=== PATIENT | female | born 1940 | race Caucasian/White ===

== ENCOUNTER 2022-03-09 10:31 | Inpatient (IN) ==
--- NOTE | 2022-02-02 14:14 | PAT Medication Instructions ---
Medication Instructions Date of Service February 02, 2022 Home Medications amlodipine 5 mg tablet 5 mg PO QAM aspirin 81 mg tablet,delayed release 81 mg PO QAM atorvastatin 10 mg tablet 10 mg PO HS escitalopram oxalate 10 mg tablet 10 mg PO HS lisinopril 30 mg tablet 30 mg PO QAM docusate sodium [Stool Softener] 1 ea PO DAILY PRN Constipation amoxicillin 500 mg capsule 500 mg PO UD cholecalciferol (vitamin D3) 125 mcg (5,000 unit) tablet (Vitamin D3) 125 mcg PO QAM turmeric 1,500 mg PO QAM Continue as directed amoxicillin 500 mg capsule 500 mg PO UD (prior to dental procedures) ASK your prescriber and surgeon aspirin 81 mg tablet,delayed release 81 mg PO QAM STOP taking 2 weeks before surgery (or as soon as possible if surgery is within 2 weeks) turmeric 1,500 mg PO QAM DO NOT take the morning of surgery lisinopril 30 mg tablet 30 mg PO QAM docusate sodium [Stool Softener] 1 ea PO DAILY PRN Constipation cholecalciferol (vitamin D3) 125 mcg (5,000 unit) tablet (Vitamin D3) 125 mcg PO QAM Take morning of surgery With a small sip of water, OTHERWISE NOTHING TO EAT OR DRINK AFTER MIDNIGHT: amlodipine 5 mg tablet 5 mg PO QAM Take evening before surgery atorvastatin 10 mg tablet 10 mg PO HS escitalopram oxalate 10 mg tablet 10 mg PO HS docusate sodium [Stool Softener] 1 ea PO DAILY PRN Constipation (if needed) Other Notes If you have any questions please call us at [phone] or [phone] or [phone] or [phone]
--- NOTE | 2022-02-10 14:43 | Anesthesiology Consultation ---
Date of Service February 10, 2022 Assessment & Plan (1) Encounter for pre-operative examination: - Patient acceptable risk for surgery pending surgeon-ordered PCP preop evaluation (Dr. Jennifer Akhtar, scheduled approximately 02/24). - COVID screening: Per assessment on 02/10: No known COVID-19 positive contacts or current COVID-19 related symptoms. Travel screen negative. Patient vaccinated. At surgeon discretion if preop Covid testing being done. - Cardiology office visit (02/09/22): "The patient is stable from cardiovascular standpoint. She demonstrates excellent control of her blood pressure and LDL ch olesterol. Her nzsz-uo-[id number] aortic stenosis remains stable. She is an acceptable cardiac risk for shoulder replacement surgery without further testing. She demonstrates excellent functional status without cardiac symptoms.. Continue current medications.. Continue home blood pressure monitoring.. Echocardiogram prior to next visit.. Follow-up in 6 months." - Outpatient joint assessment: Pt currently scheduled for inpatient pathway. If surgeon requests review for outpatient joint pathway, patient is not recommended for outpatient joint program from anesthesia standpoint. Chart Review Chart Review: Patient seen in Pre Admission Testing Teaching & Discussion Pre-Anesthesia Teaching/Discussion Notes: Instructed NPO after midnight before surgery,except medications with 15 cc of water. Medication instructions provided according to the PAT guidelines. History Surgery Operation Date: 03/09/22 10:40 Proposed Procedures p Right Reverse Total Shoulder Arthroplasty - Ronaldo Lazaro M.D. Height/Weight Height: 5 ft Weight: 69 kg Allergies Allergy/AdvReac Type Severity Reaction Status Date / Time No Known Allergies Allergy Verified 02/09/22 12:59 Medications Home Medications Medication Instructions Recorded Confirmed Last Taken amlodipine 5 mg tablet 5 mg PO QAM 01/05/20 02/09/22 Unknown aspirin 81 mg tablet,delayed 81 mg PO QAM 01/05/20 02/09/22 Unknown release atorvastatin 10 mg tablet 10 mg PO HS 01/05/20 02/09/22 Unknown escitalopram oxalate 10 mg tablet 10 mg PO HS 01/05/20 02/09/22 Unknown lisinopril 30 mg tablet 30 mg PO QAM 01/05/20 02/09/22 Unknown docusate sodium [Stool Softener] 1 ea PO DAILY PRN Constipation 01/07/20 02/09/22 Unknown amoxicillin 500 mg capsule 500 mg PO UD 02/02/22 02/09/22 Unknown cholecalciferol (vitamin D3) 125 125 mcg PO QAM 02/02/22 02/09/22 Unknown mcg (5,000 unit) tablet (Vitamin D3) Past Medical History Medical History Aortic stenosis Mild to moderate aortic stenosis (SUJIT 1.0cm2) per 07/19/21 echo/cardio note History of anxiety Hx of osteoarthritis Hyperlipidemia Hypertension Kidney stone Hx, passed without intervention Exercise / Class Metabolic Activity III < 4 Walking/Shop/Light housework (one FS (no CP, + SOB)) Past Surgical History Surgical History History of esophagogastroduodenoscopy (EGD) Hx of appendectomy + hysterectomy Hx of arthroscopic knee surgery Left Hx of breast reduction, elective Hx of cataract extraction R/L Hx of colonoscopy Hx of total hysterectomy with removal of both tubes and ovaries Past Anesthesia History No Hx of Anesthesia Complications and No Family Hx of Anesthesia Complications History of PONV No Hx of PONV and No Hx of Motion Sickness Social History Smoking Status: Never smoker Do You Dip or Chew Tobacco: No Hx Alcohol Use: No Hx Substance Use: No substance use type: does not use Review of Systems Patient denies chest pain, shortness of breath, fever, chills, cough, wheezing, palpitations. Physical Exam Vital Signs VITALS BP 113/70 P 67 TEMP 98.5 SP02 97%RA RESP 16 PHYSICAL Full cervical extension range of motion. Full TMJ range of motion. TMD 3 finger breaths Mallampati Score 2 Dentition: upper partial Lungs: clear throughout to auscultation Cardiac: regular rate and rhythm, II-III/ systolic murmur + carotid radiation Spine: normal Extremities: no edema Lab Results Anesthesia Preop Results Results Anesthesia Widget: WBC 5.40 K/ul (4.8-10.8) 02/10/22 Hgb 11.7 g/dl (12.0-16.0) L 02/10/22 Hct 35.6 % (34.1-44.9) 02/10/22 Plt 281 K/uL (130-400) 02/10/22 Na 140 mmol/L (136-145) 02/07/22 K 4.2 mmol/L (3.5-5.1) 02/07/22 Cl 106 mmol/L (98-107) 02/07/22 CO2 29 mmol/L (21-32) 02/07/22 BUN 12 mg/dl (6-23) 02/07/22 Creat 0.84 mg/dl (0.6-1.2) 02/07/22 Glucose Level 92 mg/dl (70-99(Fasting)) 02/07/22 PT 10.0 Seconds (9.0-12.0) 02/10/22 PTT 26.4 Seconds (21.0-31.0) 02/10/22 INR 0.9 (0.9-1.1) 02/10/22 HA1c 5.8 % (4.5-5.6) H 02/10/22 Urine Color Yellow 02/10/22 Urine Appearance Clear (Clear) 02/10/22 Urine pH 7.0 (4.5-7.5) 02/10/22 Urine Specific Dwarf 1.015 (1.000-1.030) 02/10/22 Urine Protein Negative (Negative) 02/10/22 Urine Glucose (UA) Negative (Negative) 02/10/22 Urine Ketones Negative (Negative) 02/10/22 Urine Blood Negative (Negative) 02/10/22 Urine Nitrite Negative (Negative) 02/10/22 Urine Bilirubin Negative (Negative) 02/10/22 Urine Urobilinogen Negative (Negative) 02/10/22 Urine Leukocyte Esterase 2+ (Negative) H 02/10/22 Urine WBC (Auto) 1-5 /hpf (0-5) 02/10/22 Urine RBC (Auto) 0-4 /hpf (0-4) 02/10/22 Urine Hyaline Casts (Auto) 0 /lpf (0-5) 02/10/22 Urine Epithelial Cells (Auto) 20-30 /lpf (0-5) H 02/10/22 Urine Bacteria (Auto) Negative (Negative) 02/10/22 Blood Type B Negative 02/10/22 Antibody Screen NEGATIVE 02/10/22 Testing Electrocardiogram Date: 02/10/22 Findings: + NSR @ (68) Chest X-Ray Date: 02/10/22 Findings: + NAD Echocardiogram Date: 07/19/21 EF 55-60%. Mild valvular aortic stenosis (SUJIT 1.0 cm, max PG 21.6 mmHg). 1 diastolic dysfunction. Mild RVD/RAD. Mild concentric LVH. No regional wall motion abnormality. Compared with prior study 05/24/2020, no significant change per report. Stress Test Date: 10/13/16 Type: DSE DSE is normal without resting LV wall motion abnormalities or inducible ischemia. LVEF 55-59%. Moderately calcified aortic valve. Mild aortic stenosis. Grade 1 diastolic dysfunction. Mild TR. COVID-19 Risk Screen Screening Information COVID-19 Screen Date: 02/10/22 Exposure 21 Days Family/Household +COVID Last 21 Days: No Exposure 10 Days Any COVID Exposure Last 10 Days: No Symptoms Last 10 Days Experienced COVID Sx Last 10 Days: No + COVID 0-90 Days COVID + in Last 0-90 Days: No
--- NOTE | 2022-03-08 16:08 | History & Physical Report ---
Date of Service March 08, 2022 Assessment & Plan (1) Primary osteoarthritis, right shoulder: Plan: She has very severe right shoulder glenohumeral joint arthritis. Unfortunately, her MRI shows that she has very diffuse high-grade partial-thickness tearing of the rotator cuff with atrophy of the rotator cuff muscle bellies. I would therefore highly recommend a reverse total shoulder arthroplasty as her only viable surgical treatment option. We did discuss further conservative management with continued injections, but these have not been terribly effective for her recently. She and her would like to proceed with the right reverse total shoulder arthroplasty. Risks, benefits, and alternatives of surgery were explained in detail. The surgical procedure, as well as postoperative recovery and rehabilitation, was also explained in detail. Risks include bleeding; infection; damage to surrounding structures such as nerves, blood vessels, and tendons that run in the area; persistent pain or stiffness; hardware failure; dislocation; brachial plexus palsy; blood clots; or need for further surgery. The patient understands all of this and wishes to proceed with surgery. Informed consent was obtained. History of Present Illness Chief Complaint: Right shoulder pain Primary Care Provider: Josr Ovalles Ms. Patterson is a 81-year-old [id number] female who returns for follow-up of her severe chronic right shoulder pain. She has had pain in this right shoulder for least the past 4 years with gradual progressive worsening. She has received at least 12 steroid injections into her right shoulder for arthritis, usually every 3 months. She has been having decreasing efficacy with these injections over time. She has severe constant pain in the shoulder that frequently wakes her up at night. She has lost a lot of motion, and has difficulty with abduction. The pain and limited motion is causing severe limitations in her activities of daily living. Of note, she has a history of aortic stenosis followed by cardiology. No surgery was recommended for this yet. She is on aspirin 81 mg daily. She is scheduled to see her data engineer for regular follow-up on February 09. Allergies Allergy/AdvReac Type Severity Reaction Status Date / Time No Known Allergies Allergy Verified 02/09/22 12:59 Home Medications Medication Instructions Recorded Confirmed Type amlodipine 5 mg tablet 5 mg PO QAM 01/05/20 02/09/22 History aspirin 81 mg tablet,delayed 81 mg PO QAM 01/05/20 02/09/22 History release atorvastatin 10 mg tablet 10 mg PO HS 01/05/20 02/09/22 History escitalopram oxalate 10 mg tablet 10 mg PO HS 01/05/20 02/09/22 History lisinopril 30 mg tablet 30 mg PO QAM 01/05/20 02/09/22 History docusate sodium [Stool Softener] 1 ea PO DAILY PRN Constipation 01/07/20 02/09/22 History amoxicillin 500 mg capsule 500 mg PO UD 02/02/22 02/09/22 History cholecalciferol (vitamin D3) 125 125 mcg PO QAM 02/02/22 02/09/22 History mcg (5,000 unit) tablet (Vitamin D3) Past Med/Surg History Medical History Aortic stenosis Mild to moderate aortic stenosis (SUJIT 1.0cm2) per 07/19/21 echo/cardio note History of anxiety Hx of osteoarthritis Hyperlipidemia Hypertension Kidney stone Hx, passed without intervention Surgical History History of esophagogastroduodenoscopy (EGD) Hx of appendectomy + hysterectomy Hx of arthroscopic knee surgery Left Hx of breast reduction, elective Hx of cataract extraction R/L Hx of colonoscopy Hx of total hysterectomy with removal of both tubes and ovaries Social History Smoking Status: Never smoker Second Hand Exposure: No; Hx Alcohol Use: No Hx Substance Use: No Preferred Language: German Communication Ability: Effective Day Care Worker Required: No Beliefs That Will Affect Care: None Current Living Situation: Spouse Feels Safe at Home: Yes Assistive Devices: Denture - Upper Physical Exam Physical Exam: Examination of the right shoulder shows fairly severe limitation in shoulder range of motion due to pain, with palpable crepitus during motion. She can only actively abduct up to about 60 degrees, externally rotate to about 20 degrees, and internally rotate to the PSIS level. Rotator cuff strength is globally weak. Results & Data ([facility]) Diagnostic Findings Previous x-rays of the right shoulder from January 11 were reviewed. They show severe glenohumeral joint arthritis with complete loss of the joint space and significant remodeling of both the humeral head and glenoid with significant posterior glenoid wear and posterior subluxation. MRI of the right shoulder from January 25 was reviewed. Multiple sequences are severely limited by motion artifact. However, it does look like she has severe diffuse tendinopathy and high-grade partial-thickness tearing of multiple rotator cuff tendons. There is significant atrophy of multiple rotator cuff muscle bellies.
[~2022-03-09 10:31] MED LIST: ACETAMINOPHEN 500 MG TAB PO SCH; BUPIVACAINE 0.5 % 5 MG/1 ML PF 10ML VIAL ONE; CeleBREX 200 MG CAP PO SCH; FAMOTIDINE 20 MG TAB PO SCH; GABAPENTIN 300 MG CAP PO SCH; LR 15ML/HR IV SCH; METOCLOPRAMIDE HCL 10 MG TABLET PO SCH; TRANEXAMIC ACID 1,000 MG **IV Pre-op IV SCH; ceFAZolin 2000MG 2,000 MG/15 ML SYR IV SCH; dexAMETHasone 4 MG TAB PO SCH
[2022-03-09] MEDS ORDERED: fentaNYL citrate 100 MCG/2 ML VIAL IV PRN (11:36)
[2022-03-09] MEDS ORDERED: ONDANSETRON INJ 2 MG/ML 2 ML VIAL IV PRN ×2 (11:36→17:14)
[2022-03-09] MEDS ORDERED: ATROPINE SULFATE 0.1 MG/ML 10ML SYR IV PRN (11:36)
[2022-03-09] MEDS ORDERED: ePHEDrine sulfate 50 MG/ML AMP IV PRN (11:36)
[2022-03-09] MEDS ORDERED: MIDAZOLAM HCL 1 MG/ML 2ML VIAL ONE (12:39)
[2022-03-09] MEDS ORDERED: fentaNYL citrate 100 MCG/2 ML VIAL ONE (12:39)
--- NOTE | 2022-03-09 13:16 | History & Physical Bridge Note ---
Date of Service March 09, 2022 History & Physical Bridge Note I have examined the patient, reviewed the History & Physical and in the interval since the performance of the History & Physical I have noted the following changes of clinical significance: no changes noted
[2022-03-09] MEDS ORDERED: DEXAMETHASONE SOD INJ 4 MG/ML VIAL ONE (14:23)
[2022-03-09] MEDS ORDERED: LIDOCAINE 2% 2 ML VIAL/AMP(20MG/ML) INFIL ONE (14:23)
[2022-03-09] MEDS ORDERED: PROPOFOL IV EMULSION 10 MG/ML 20 ML VIAL IV ONE (14:23)
[2022-03-09] MEDS ORDERED: ONDANSETRON INJ 2 MG/ML 2 ML VIAL ONE (14:23)
[2022-03-09] MEDS ORDERED: ePHEDrine sulfate 50 MG/ML AMP ONE (14:23)
[2022-03-09] MEDS ORDERED: PHENYLEPHRINE HCL 10 MG/ML VIAL ONE (14:23)
--- NOTE | 2022-03-09 15:35 | Operative Report ---
Post Operative Report Pre & Post Diagnosis Operation Date: 03/09/22 13:15 Pre-Op Diagnosis: Right shoulder primary glenohumeral joint arthritis with diffuse partial- thickness rotator cuff tearing Post-Op Diagnosis: Right shoulder primary glenohumeral joint arthritis with diffuse partial- thickness rotator cuff tearing I identified the patient and participated in the time-out.: Yes Procedure Operation Date: 03/09/22 13:15 Actual Procedures Right reverse total shoulder arthroplasty (20655) Open biceps tenodesis (54560) - Ronaldo Lazaro M.D. Surgeon Ronaldo Lazaro Shank Scourer Mahin Vivas PA-C Estimated Blood Loss 75 Findings Consistent with Post-Op Diagnosis Specimens None Drains None Anesthesia Type General Regional Complications none Disposition Disposition: Recovery Room Indications Ms. Patterson is an 82-year-old female with chronic right shoulder pain and weakness. History, clinical exam, and imaging were consistent with the above diagnosis. Risks, benefits, and alternatives of surgery were explained in detail. The patient understood all this and wished to proceed. Description of Procedure Components Implanted: Tornier Reverse Total Shoulder implants Perform glenoid baseplate: 25mm, 15 degree full wedge with 6.5mm central screw and 5.0mm peripheral screws Glenosphere: 39mm, +3mm, eccentric offset Ascend Flex humeral stem: 2B Standard length (70mm) Humeral tray: 3.5 mm offset, +6mm thickness Polyethylene insert: 39mm, +6mm thickness Patient was identified in the preoperative holding area. Operative extremity was marked. Regional blockade was given by the Anesthesia Staff. Patient was then brought back to the operating room, and general anesthesia was induced without complication. Appropriate weight-based dose of Ancef was infused intravenously for antibiotic prophylaxis. The patient was then placed in the beachchair position. Right arm was then prepped and draped in a standard sterile fashion using Chlorhexidine prep. A standard deltopectoral incision was made through the skin and subcutaneous tissue. The cephalic vein was identified and retracted medially. Small branches to the deltoid were coagulated as necessary. The clavipectoral fascia was then incised and the subdeltoid space was opened. The rotator cuff was found to be deficient, and I therefore decided to perform a reverse total shoulder arthroplasty as planned preoperatively. The biceps tendon was identified within the bicipital groove and tenodesed at the superior border of the pectoralis tendon with #2 FiberWire suture. The biceps tendon was then divided proximal to the tenodesis site and the rotator interval was opened. The proximal portion of the biceps tendon was excised. The remaining subscapularis tendon was elevated subperiosteally off of the lesser tuberosity. The glenohumeral joint was then dislocated, and large osteophytes were debrided with a ronguer. The intramedullary canal of the humerus was then opened with a canal finder. The humeral head cut was then made in the appropriate inclination and version using the cutting guide. The humeral canal was then sequentially broached to the appropriate size. A protective cap was then placed on top of the humeral trial. I then turned my attention to the glenoid. The proximal stump of the biceps tendon was excised, along with the labrum circumferentially around the glenoid. The Blueprint drill guide was then positioned on the glenoid, and the guidepin was then inserted. The 15 degree angled reamer was then inserted over the gu idepin and an reamed to an appropriate depth. The central screw hole was drilled, and appropriate length 6.5mm central screw was selected. The baseplate was then implanted into place according to our preoperative Blueprint plan by tightening down the central screw. A peripheral 5mm nonlocking screw was placed posteriorly first for additional compression of the baseplate, and then additional locking 5 mm peripheral screws were placed to complete fixation of the baseplate. Glenosphere was then impacted and secured. A trial humeral tray and insert were placed on the trial humeral stem, and a trial reduction was carried out. Once I achieved acceptable joint stability and range of motion with the trial implants, the final humeral implants were assembled on the back table and then impacted into position. I then took the shoulder through full range of motion to ensure good stability and acceptable motion. Wound was then copiously irrigated with sterile saline. Deep fascia was closed with 0 V-lock suture. Subcutaneous tissue was closed with 2-0 V-lock, and skin was closed with 3-0 V-lock. Skin was then sealed with Dermabond. Sterile dressings were then applied with a waterproof silver-impregnated dressing, and the arm was placed into a sling. The patient was awakened from anesthesia and taken to the Post Anesthesia Care Unit in stable condition. There were no immediate complications from the procedure. I was present and scrubbed for the entire procedure, with the exception of final skin closure and dressing application. Due to the complex nature of the procedure, the entire surgery was performed with the operational assistance of Mahin Vivas PA-C. The clinical assistant professor, under direct supervision, was involved in the performance of all aspects of the surgical procedure including hemostasis, tissue incision and retraction, instrument management, patient positioning, and wound closure. I attest to the content of the Intraoperative Record and any orders documented therein. Any exceptions are noted below.
--- NOTE | 2022-03-09 16:15 | XRay Report ---
RIGHT SHOULDER 2 VIEWS CLINICAL HISTORY: Postoperative examination. FINDINGS: 2 portable views of the right shoulder are obtained. The skeletal structures are osteopenic . A right shoulder arthroplasty is in near anatomic alignment. No acute fracture is seen. Simultaneou s gas and soft tissue swelling overlying the right shoulder are expected postoperative changes. Mild productive degenerative change is noted at the acromioclavicular joint. The right lung parenchyma is clear as imaged. IMPRESSION: Expected postoperative findings status post right shoulder arthroplasty. No acute fractur e is seen. Electronically signed by: Tate Brewster M.D. 03/09/2022 4:13 PM
[2022-03-09] MEDS ORDERED: MAGNESIUM HYDROXIDE SUSP 30 ML UDC PO PRN (17:14)
[2022-03-09] MEDS ORDERED: bisacodyL 10 MG SUPP PR PRN (17:14)
[2022-03-09] MEDS ORDERED: oxyCODONE HCL IR 5 MG TAB (IMMEDIATE RELEASE) PO PRN (17:14)
[2022-03-09] MEDS ORDERED: SODIUM CHLORIDE 0.9% 1000ML 1,000 ML IV SCH (17:14)
[2022-03-09] MEDS ORDERED: NALOXONE HCL 0.4 MG/1 ML VIAL/CARP IV PRN (17:14)
[2022-03-09] MEDS ORDERED: METOCLOPRAMIDE HCL INJ 5 MG/ML 2 ML VIAL IV PRN (17:14)
[2022-03-09] MEDS: ACETAMINOPHEN 500 MG TAB PO SCH ×2 (17:57→23:27)
--- NOTE | 2022-03-09 18:36 | Anesthesiology Progress Note ---
Date of Service March 09, 2022 Anesthesia Post Procedure Vital Signs Vital Signs: Temp Pulse Pulse Resp BP Pulse Ox O2 Del Method 03/09/22 16:50 96 H 17 135/68 94 Nasal Cannula 03/09/22 16:40 97 H 20 133/65 94 Nasal Cannula 03/09/22 16:30 96 H 17 123/58 L 94 Nasal Cannula 03/09/22 16:20 36.6 C 97 H 17 126/69 95 Nasal Cannula 03/09/22 16:10 94 H 18 126/76 96 Oxymask 03/09/22 16:00 93 H 16 115/66 96 Oxymask 03/09/22 15:50 92 H 19 122/69 98 Oxymask 03/09/22 15:43 36.0 C L 101 H 12 149/77 H 97 Oxymask 03/09/22 10:53 36.7 C 89 20 152/90 H 95 Room Air O2 Flow Rate 03/09/22 16:50 2 03/09/22 16:40 2 03/09/22 16:30 2 03/09/22 16:20 2 03/09/22 16:10 4 03/09/22 16:00 4 03/09/22 15:50 6 03/09/22 15:43 8 03/09/22 10:53 Pain Intensity Right Shoulder: Pain Intensity: 3 Transfer of Care Handoff Completed per policy Notes Mental Status: alert / awake / arousable Patient Amnestic to Procedure: Yes Nausea / Vomiting: adequately controlled Pain: adequately controlled Airway Patency, RR, SpO2: stable & adequate BP & HR: stable & adequate Hydration State: stable & adequate Anesthetic Complications: no major complications apparent
[2022-03-09] MEDS ORDERED: SENNA 8.6 MG TAB PO SCH (21:00)
[2022-03-09] MEDS ORDERED: ESCITALOPRAM OXALATE 10 MG TAB PO SCH (21:00)
[2022-03-09] MEDS ORDERED: ATORVASTATIN 10 MG TAB PO SCH (21:00)
[2022-03-09] MEDS: DOCUSATE SODIUM 100 MG CAP PO SCH (21:04)
[2022-03-09] MEDS: IBUPROFEN 600 MG TAB PO SCH (21:04)
[2022-03-09] MEDS: ceFAZolin 2000MG 2,000 MG/15 ML SYR IV SCH (22:27)
[2022-03-10] MEDS: IBUPROFEN 600 MG TAB PO SCH ×2 (02:07→09:07)
[2022-03-10] MEDS: ACETAMINOPHEN 500 MG TAB PO SCH (05:52)
[2022-03-10] MEDS: ceFAZolin 2000MG 2,000 MG/15 ML SYR IV SCH (05:52)
[2022-03-10 08:00] LABS: Basophils # (auto) 0.01 K/uL (0-0.2); Basophils % (auto) 0.1 %; Hematocrit (blood only) 30.5 % (34.1-44.9); Hemoglobin 10.3 g/dl (12.0-16.0); Immature Granulocytes # (auto) 0.05 K/uL (0.00-0.02); Immature Granulocytes % (auto) 0.4 %; Lymphocytes # (auto) 0.58 K/uL (1.2-3.4); Mean Corpuscular Hemoglobin 29.5 pg (25.0-34.0); Mean Corpuscular Hgb Conc 33.8 g/dL (32.0-36.0); Mean Corpuscular Volume 87.4 fL (80.0-100.0); Mean Platelet Volume 9.6 fL (9.4-12.3); Monocytes # (auto) 0.98 K/uL (0.24-0.82); Monocytes % (auto) 8.5 %; Neutrophils # (auto) 9.94 K/uL (1.4-6.5); Platelet Count 231 K/uL (130-400); RDW Coefficient of Variation 12.3 % (11.5-14.5); RDW Standard Deviation 39.4 fL (36.4-46.3); Red Blood Count 3.49 M/uL (3.93-5.22); White Blood Count 11.56 K/ul (4.8-10.8)
--- NOTE | 2022-03-10 08:09 | Orthopedic Progress Note ---
Date of Service March 10, 2022 Assessment & Plan (1) Primary osteoarthritis, right shoulder: Plan: 82 yo female stable POD #1 s/p right reverse TSA 1. Med management 2. DVT prophylaxis- ASA, SCDs 3. PT/OT 4. D/C planning- home w/ OPPT Admission and Anticipated Discharge Date Admission Date: March 09, 2022 Subjective Pt resting in bed, denies complaints, no pain Physical Exam Physical Exam: Silverlon dressing in place, fingers mobile, NVI Results & Data ([facility]) Vital Signs (Past 12 Hours) Vital Signs Temp Pulse Resp BP Pulse Ox O2 Del Method O2 Flow Rate 03/10/22 07:41 36.6 C 65 16 112/70 93 Room Air 03/10/22 06:00 36.4 C L 68 16 122/61 94 Room Air 03/10/22 00:00 36.9 C 73 16 111/70 93 Nasal Cannula 2 Laboratory Results 03/10/22 03/10/22 03/09/22 Range/Units 07:11 07:11 10:40 WBC 11.56 H (4.8-10.8) K/ul RBC 3.49 L (3.93-5.22) M/uL Hgb 10.3 L (12.0-16.0) g/dl Hct 30.5 L (34.1-44.9) % MCV 87.4 (80.0-100.0) fL MCH 29.5 (25.0-34.0) pg MCHC 33.8 (32.0-36.0) g/dL RDW Std Deviation 39.4 (36.4-46.3) fL RDW Coeff of Belle 12.3 (11.5-14.5) % Plt Count 231 (130-400) K/uL MPV 9.6 (9.4-12.3) fL Immature Gran % (Auto) 0.4 % Neut % (Auto) 86.0 % Lymph % (Auto) 5.0 % [place] % (Auto) 8.5 % Eos % (Auto) 0.0 % Baso % (Auto) 0.1 % Neut # (Auto) 9.94 H (1.4-6.5) K/uL Lymph # (Auto) 0.58 L (1.2-3.4) K/uL [place] # (Auto) 0.98 H (0.24-0.82) K/uL Eos # (Auto) 0.00 (0-0.50) K/uL Baso # (Auto) 0.01 (0-0.2) K/uL Immature Gran # (Auto) 0.05 H (0.00-0.02) K/uL Sodium Pending Potassium Pending Chloride Pending Carbon Dioxide Pending Anion Gap Pending BUN Pending Creatinine Pending Est Cr Clr Drug Dosing Pending Est GFR ( Amer) Pending Est GFR (Non-Af Amer) Pending BUN/Creatinine Ratio Pending Glucose Pending Calcium Pending SARS-CoV-2, RNA, NAAT NEGATIVE (NEGATIVE)
[2022-03-10 08:32] LABS: BUN Creatinine Ratio 22.4 (10-20); Calcium 8.2 mg/dl (8.5-10.1); Creatinine Clr Calc Pharmacy 36.1 ml/min; Est GFR (African American) 56.8 ml/min; Potassium 4.4 mmol/L (3.5-5.1)
[2022-03-10] MEDS ORDERED: lisinopril 10 MG TAB PO SCH (09:00)
[2022-03-10] MEDS ORDERED: ASPIRIN 325 MG ECTAB PO SCH (09:00)
[2022-03-10] MEDS ORDERED: CHOLECALCIFEROL 5,000 UNITS 125 MCG TAB PO SCH (09:00)
[2022-03-10] MEDS ORDERED: amLODIPine BESYLATE 5 MG TAB PO SCH (09:00)
[2022-03-10] MEDS ORDERED: MULTIVITAMIN TAB PO SCH (09:00)
[2022-03-10] MEDS: DOCUSATE SODIUM 100 MG CAP PO SCH (09:07)
--- NOTE | 2022-03-10 14:53 | Discharge Summary ---
Date of Service March 10, 2022 Admission HPI Per Admitting Provider Ms. Patterson is a 81-year-old [id number] female who returns for follow-up of her severe chronic right shoulder pain. She has had pain in this right shoulder for least the past 4 years with gradual progressive worsening. She has received at least 12 steroid injections into her right shoulder for arthritis, usually every 3 months. She has been having decreasing efficacy with these injections over time. She has severe constant pain in the shoulder that frequently wakes her up at night. She has lost a lot of motion, and has difficulty with abduction. The pain and limited motion is causing severe limitations in her activities of daily living. Of note, she has a history of aortic stenosis followed by cardiology. No surgery was recommended for this yet. She is on aspirin 81 mg daily. She is scheduled to see her price changer for regular follow-up on February 09. Principal Diagnosis Right shoulder arthritis with diffuse rotator cuff tearing Discharge Data Allergies Allergy/AdvReac Type Severity Reaction Status Date / Time No Known Allergies Allergy Verified 03/09/22 10:48 Procedures Performed Operation Date: 03/09/22 13:15 Actual Procedures p Right Reverse Total Shoulder Arthroplasty - Ronaldo Lazaro M.D. Ordered Studies 03/09/22 05:00 US - OR guided needle placemen Routine Hospital Course (1) Primary osteoarthritis, right shoulder: Patient underwent a right reverse total shoulder arthroplasty on the date of admission. Patient tolerated the procedure well and was transferred up to the general orthopedic surgery floor in stable condition. Perioperative antibiotic coverage was initiated, and continued for 24 hours postoperatively. DVT prophylaxis was initiated consisting of SCDs and aspirin 325 mg daily. Perioperative pain control regimen was transitioned to strictly oral pain medications by postoperative day 1. On postoperative day 1 the patient was doing very well. Pain was well controlled, and patient was mobilizing well with therapy. Patient was determined be safe and ready for discharge to home. Total Time Total Time Spent Total Time Spent (In Minutes): 15 Discharge Plan Discharge Items Patient Disposition: Home - Self-Care Reason For Visit: Right Shoulder Osteoarthritis w Rotator Cuff Tear Discharge Diagnosis: Right shoulder primary glenohumeral joint arthritis with diffuse partial thickness rotator cuff tearing Activity: Per Instructions section Non-emergency contact: Surgeon Call non-emergency contact if: your pain is not controlled, your temperature is above 101.5, your wound has increased redness and your wound has increased drainage Follow-up/Referrals: Jennifer Akhtar MD [Primary Care Provider] - Ronaldo Lazaro M.D. [Physician] - Diet: Regular Addtl Attending Provider Instructions: Things to Watch Out For -Go to the Emergency Room if you have sudden onset of nausea, vomiting, chest pain, shortness of breath, or uncontrollable pain. -Call the clinic or go to the Emergency Room if you have a sudden increase in the amount of wound drainage or the drainage becomes thick, yellow or green, or foul-smelling. -For routine questions, call the clinic at [phone] during regular business hours (8am-5pm). For urgent issues after regular business hours, you may call the clinic to be connected to the on-call physician. Dressings -A special waterproof, silver-impregnated dressing was placed on your shoulder. Keep this dressing in place for 1 week after surgery. You may shower with the waterproof dressing in place, but do not soak the dressing in the bathtub or pool. -One week after surgery, you may remove the waterproof dressing. You may continue to shower, and let water run BRIEFLY over the incision, but do not soak the incision in the bathtub or pool for 2 weeks. You may also gently clean the incision with mild soap and water; pat the incision dry after cleaning-do not rub the incision. Apply a new dressing daily thereafter. Shoulder Exercises -Keep your operative shoulder in the sling for comfort, except as detailed below. -You should come out of the sling 4-5 times a day for passive pendulum exercises: lean over and swing your arm in a circular pattern. -You should also do active-assisted forward flexion exercises: use your opposite hand to lift your operative arm forward to 90 degrees. -Do not flex your elbow (curl motion) or supinate your forearm (rotating palm up) against resistance. -Do not use your arm to push yourself up out of bed or up from a seated position. Ice Pack -You may use an ice pack for pain relief. You should use it 20-30 minutes at a time. Place a towel between the ice pack and your skin to prevent frostbite. -You should use the ice pack fairly regularly for the first 1-2 weeks after surgery to help reduce pain and inflammation. -About 2 weeks after your surgery, you should start using heat to loosen up your shoulder prior to doing your stretching exercises, then use the cooling sleeve after your exercises are complete to reduce swelling and pain. Pain Medicines -Your prescriptions for pain medications have already been sent to the pharmacy on file at [facility]. -You have been prescribed an anti-inflammatory (Motrin/ibuprofen) and a non- narcotic pain medicine (Tylenol/acetaminophen). These are your primary pain medications. Take them each every 6 hours as instructed. It is recommended that you stagger these medicines every 3 hours (i.e. take ibuprofen at 8:00 am, then acetaminophen at 11:00 am, then ibuprofen at 2:00 pm, etc) -DO NOT take any additional anti-inflammatories (Advil, Aleve/naproxen, Mobic/meloxicam, Celebrex) or any additional Tylenol/acetaminophen products with these prescribed medications. -You have also been prescribed an additional narcotic pain medication (oxycodon e). Take this medicine ONLY for breakthrough pain not controlled by the ibuprofen and acetaminophen. -Do not drive or operate heavy machinery while taking the narcotic medication. -Common side effects of narcotic pain medicines include itching, nausea, constipation, and feeling "loopy". However, if you develop a rash or hives, stop taking the medicine and call the clinic. If you develop swelling in your throat or difficulty breathing, go to the Emergency Room or call 911 IMMEDIATELY. -You may take over the counter stool softeners if needed for constipation. Aspirin -Take a full strength (325mg) aspirin every day for 4 weeks (28 days) to prevent blood clots. -If you were taking a baby aspirin (81mg) prior to surgery, you may resume taking this 81mg dose after you complete the 28-day course of the 325mg strength dose; do not take the 325mg dose in addition to your 81mg dose. -Be aware that you will bruise easier while taking Aspirin; this is normal. However, if you develop a significantly large area of swelling after an injury, or have a cut that will not stop bleeding, call the clinic or go to the Emergency Room immediately. Pending Studies at Discharge: No Stand-Alone Forms: My [facility] Medications and DC Order Prescriptions: Continued escitalopram oxalate 10 mg tablet 10 mg PO HS amlodipine 5 mg tablet 5 mg PO QAM atorvastatin 10 mg tablet 10 mg PO HS lisinopril 30 mg tablet 30 mg PO QAM docusate sodium 1 ea PO DAILY PRN (Reason: Constipation) cholecalciferol (vitamin D3) [Vitamin D3] 125 mcg (5,000 unit) Tablet 125 mcg PO QAM amoxicillin 500 mg capsule 500 mg PO UD Rx Instructions: 500 mg PO Four tablets 1 hour prior to dental procedure Discontinued aspirin 81 mg tablet,delayed release (DR/EC) 81 mg PO HS Discharge Orders: Discharge Order (Routine); Ordered 03/10/22 Ordered By: Mahin Vivas Admission Data Admit Date/Time: 03/09/22 15:51 Attending Provider: Ronaldo Lazaro Admit Provider: Ronaldo Lazaro Primary Care Provider: Jennifer Akhtar Other Interventions: Discharge Summary Assessment (RN) Last Done: 03/10/22 10:36
== END 2022-03-10 11:10 | disposition home or self-care (01) | DRG 483 ==
LOC: ASU 10:31 → 3W 15:51

== ENCOUNTER 2024-07-08 09:21 | Observation (INO) ==
--- NOTE | 2024-06-17 12:34 | PAT Medication Instructions ---
Medication Instructions Date of Service June 17, 2024 Home Medications Medication Instructions Recorded amoxicillin 500 mg capsule 500 mg PO UD #20 caps 11/29/23 amlodipine 5 mg tablet 5 mg PO QAM atorvastatin 10 mg tablet 10 mg PO HS escitalopram oxalate 10 mg tablet 20 mg PO HS lisinopril 30 mg tablet 30 mg PO QAM cholecalciferol (vitamin D3) 125 mcg (5,000 unit) tablet (Vitamin D3) 125 mcg PO QAM aspirin 81 mg tablet 81 mg PO QAM amoxicillin 500 mg capsule 500 mg PO UD docusate sodium 50 mg tablet 50 mg PO DAILY PRN prn Continue as directed amoxicillin 500 mg capsule 500 mg PO UD ASK your prescriber and surgeon aspirin 81 mg tablet 81 mg PO QAM DO NOT take the morning of surgery lisinopril 30 mg tablet 30 mg PO QAM cholecalciferol (vitamin D3) 125 mcg (5,000 unit) tablet (Vitamin D3) 125 mcg PO QAM docusate sodium 50 mg tablet 50 mg PO DAILY PRN prn Take morning of surgery With a small sip of water, OTHERWISE NOTHING TO EAT OR DRINK AFTER MIDNIGHT: amlodipine 5 mg tablet 5 mg PO QAM Take evening before surgery atorvastatin 10 mg tablet 10 mg PO HS escitalopram oxalate 10 mg tablet 20 mg PO HS docusate sodium 50 mg tablet 50 mg PO DAILY PRN prn (if needed) Other Notes If you have any questions please call us at [phone] or [phone] or [phone] or [phone]
--- NOTE | 2024-06-25 10:43 | Anesthesiology Consultation ---
Date of Service June 25, 2024 Assessment & Plan (1) Encounter for pre-operative examination: - Patient should be acceptable candidate for neuraxial anesthesia per Dr. Soriano after detailed discussion regarding aortic stenosis and SUJIT/mean PG listed on echo report. He advised ordering bolus--final determination to assigned anesthesiologist jere ARMIJO. - cardiology office visit 04/18/24 [place]: "...Right TKA on 05/14/[address] Bertrand...has not experienced any angina pectoris, overt signs or symptoms of heart failure, nor has she had any symptoms suggestive of a sustained dysrhythmia. She has not had any neurologic symptoms suggestive of stroke or mini stroke...occasional brief flutterings" in her chest which seem to happen very rarely and very randomly. This sensation is very fleeting and she does not have any associated symptoms with this fluttering"...reviewed her most recent echocardiogram in detail...Based her on her functional status without limiting cardiopulmonary symptoms, normal EKG tracing, and normal LV systolic function on recent echocardiogram -- patient is a low to intermediate cardiac risk for her upcoming elective joint replacement surgery...no need for further cardiac workup at this time..." - Outpatient joint assessment: Patient is currently scheduled for inpatient pathway. If re-evaluated and patient/surgeon requests outpatient pathway, patient is not a candidate for outpatient joint program from anesthesia standpoint. Chart Review Chart Review: Acceptable Risk for Surgery and Patient seen in Pre Admission Testing Teaching & Discussion Pre-Anesthesia Teaching/Discussion Notes: Instructed NPO after midnight before surgery, except medications with 15 cc of water. Medication instructions pro vided according to the PAT guidelines. History Surgery Operation Date: 07/08/24 11:30 Proposed Procedures p Right Total Knee Arthroplasty - Maxwell Gardner MD Height/Weight Height: 5 ft Weight: 69.8 kg Allergies Allergy/AdvReac Type Severity Reaction Status Date / Time No Known Allergies Allergy Verified 06/12/24 12:49 Medications Home Medications Medication Instructions Recorded Confirmed Last Taken amlodipine 5 mg tablet 5 mg PO QAM 01/05/20 06/12/24 03/09/22 08:30 atorvastatin 10 mg tablet 10 mg PO HS 01/05/20 06/12/24 03/08/22 20:30 escitalopram oxalate 10 mg tablet 20 mg PO 01/05/20 06/12/24 03/08/22 20:30 lisinopril 30 mg tablet 30 mg PO QAM 01/05/20 06/12/24 03/08/22 10:00 cholecalciferol (vitamin D3) 125 125 mcg PO QAM 02/02/22 06/12/24 03/08/22 10:00 mcg (5,000 unit) tablet (Vitamin D3) aspirin 81 mg tablet 81 mg PO QAM 09/14/22 06/12/24 Unknown amoxicillin 500 mg capsule 500 mg PO UD #20 caps 11/29/23 06/12/24 Unknown docusate sodium 50 mg tablet 50 mg PO DAILY PRN prn 06/12/24 06/12/24 Unknown Past Medical History Medical History Aortic stenosis Mild to moderate valvular aortic stenosis (SUJIT 0.9 cm2, mean PG 17 mmHg) per 01/2024 echo Atrial septal aneurysm History of anxiety Hx of osteoarthritis Hyperlipidemia Hypertension controlled, stable per pt Kidney stone (~1975) Hx, passed without intervention Patient denies h/o stroke, seizures, heart attack, heart failure, DM, blood clots/DVTs or blood transfusions. Exercise / Class Metabolic Activity III < 4 Walking/Shop/Light housework (denies chest discomfort or shortness of breath with usual activities, less than 8 steps in home) Past Surgical History Surgical History History of esophagogastroduodenoscopy (EGD) History of reverse total replacement of right shoulder joint Hx of appendectomy + hysterectomy Hx of arthroscopic knee surgery Left Hx of breast reduction, elective Hx of cataract extraction bilateral Hx of colonoscopy Hx of total hysterectomy with removal of both tubes and ovaries Past Anesthesia History No Hx of Anesthesia Complications and No Family Hx of Anesthesia Complications History of PONV No Hx of PONV and No Hx of Motion Sickness Social History Smoking Status: Never smoker Do You Dip or Chew Tobacco: No Hx Alcohol Use: Yes alcohol intake frequency: holidays/special occasions only Hx Substance Use: No substance use type: does not use Review of Systems Occasional snoring, denies witnessed apneas. Patient denies chest pain, shortness of breath, dyspnea on exertion, reflux, fever, chills, cough, wheezing, or palpitations. Physical Exam Vital Signs Vitals BP 153/84 P 83 TEMP 97.7 SP02 94% on RA RESP 18 Physical Patient resting comfortably in chair in no acute distress, alert and oriented, responding appropriately throughout visit Full cervical extension range of motion without pain TMD 3.5 finger breadths Mallampati Score 2 Dentition: partial plate with 4 upper teeth, denies chipped or loose teeth, caps/crowns, implants or bridges Lungs: normal respiratory effort. Good air movement, clear throughout to auscultation, no adventitious breath sounds Cardiac: regular rate and rhythm, 2/6 systolic murmur, no gallops or rubs Carotid arteries: negative bruit bilat Lab Results Anesthesia Preop Results Results Anesthesia Widget: WBC 4.93 K/ul (4.8-10.8) 06/25/24 Hgb 13.6 g/dl (12.0-16.0) 06/25/24 Hct 40.5 % (37.0-47.0) 06/25/24 Plt 288 K/uL (130-400) 06/25/24 Na 138 mmol/L (136-145) 06/25/24 K 4.2 mmol/L (3.5-5.1) 06/25/24 Cl 105 mmol/L (98-107) 06/25/24 CO2 28 mmol/L (21-32) 06/25/24 BUN 20 mg/dl (6-23) 06/25/24 Creat 0.97 mg/dl (0.6-1.2) 06/25/24 Glucose Level 87 mg/dl (70-99(Fasting)) 06/25/24 PT 10.1 Seconds (9.0-12.0) 06/25/24 PTT 26 Seconds (21-31) 06/25/24 INR 0.9 (0.9-1.1) 06/25/24 Urine Color Yellow 06/25/24 Urine Appearance Clear (Clear) 06/25/24 Urine pH 5.5 (4.5-7.5) 06/25/24 Urine Specific [place] 1.019 (1.000-1.030) 06/25/24 Urine Protein Negative (Negative) 06/25/24 Urine Glucose (UA) Negative (Negative) 06/25/24 Urine Ketones Trace (Negative) H 06/25/24 Urine Blood Negative (Negative) 06/25/24 Urine Nitrite Negative (Negative) 06/25/24 Urine Bilirubin Negative (Negative) 06/25/24 Urine Urobilinogen Negative (Negative) 06/25/24 Urine Leukocyte Esterase 2+ (Negative) H 06/25/24 Urine WBC (Auto) 0-5 /hpf (0-5) 06/25/24 Urine RBC (Auto) 0-2 /hpf (0-2) 06/25/24 Urine Hyaline Casts (Auto) 0-2 /lpf (0-2) 06/25/24 Urine Epithelial Cells (Auto) 0-2 /hpf (0-2) 06/25/24 Urine Bacteria (Auto) None Seen (None Seen) 06/25/24 Blood Type B Negative 06/25/24 Antibody Screen NEGATIVE 06/25/24 Testing Electrocardiogram Date: 04/18/24 NSR, rate 62 bpm Chest X-Ray Date: 06/25/24 No acute chest disease. Echocardiogram Date: 01/21/24 EF 55-60% Normal LV wall motion Mild cLVH Mild to moderate valvular aortic stenosis (SUJIT 0.9 cm2, mean PG 17 mmHg) Grade I diastolic dysfunction Atrial septum is aneurysmal without evidence of shunting Mild tricuspid regurgitation Mild pulmonic valvular regurgitation
--- NOTE | 2024-07-08 06:57 | History & Physical Report ---
Date of Service July 08, 2024 Assessment & Plan (1) Bilateral primary osteoarthritis of knee: Plan: Severe end-stage bilateral knee osteoarthritis failed conservative management. Patient of Dr. Bertrand who needs surgery at [facility] so he referred her to me to have surgery done at [facility] as she needs close cardiology follow-up postoperatively. Right knee is most symptomatic and we will proceed with a right total knee replacement. History of Present Illness Chief Complaint: Bilateral knee pain right greater than left Primary Care Provider: Jennifer Akhtar MD 84-year-old female with severe end-stage bilateral knee osteoarthritis but right knee is significantly more painful than the left. Patient's failed conservative management and wants to proceed with knee replacement. Patient denies headaches, sweats, fevers, chills, double vision, blurred vision, cough, sore throat, dysphagia, chest pain, sob at rest, wheezing, n/v/d/c, numbness, tingling, fatigue, urinary symptoms. ROS positive for anxiety, heart palpitations, some shortness of breath with exertion. Allergies Allergy/AdvReac Type Severity Reaction Status Date / Time No Known Allergies Allergy Verified 06/12/24 12:49 Home Medications Medication Instructions Recorded Confirmed Type amlodipine 5 mg tablet 5 mg PO QAM 01/05/20 06/12/24 History atorvastatin 10 mg tablet 10 mg PO HS 01/05/20 06/12/24 History escitalopram oxalate 10 mg tablet 20 mg PO HS 01/05/20 06/12/24 History lisinopril 30 mg tablet 30 mg PO QAM 01/05/20 06/12/24 History cholecalciferol (vitamin D3) 125 125 mcg PO QAM 02/02/22 06/12/24 History mcg (5,000 unit) tablet (Vitamin D3) aspirin 81 mg tablet 81 mg PO QAM 09/14/22 06/12/24 History amoxicillin 500 mg capsule 500 mg PO UD #20 caps 11/29/23 06/12/24 Rx docusate sodium 50 mg tablet 50 mg PO DAILY PRN prn 06/12/24 06/12/24 History Past Med/Surg History Problem List (Updated 07/08/24 @ 06:59 by Maxwell Gardner MD) Bilateral primary osteoarthritis of knee Atrial septal aneurysm Aortic stenosis Mild to moderate aortic stenosis (SUJIT 1.0cm2) per 07/19/21 echo/cardio note Generalized anxiety disorder Hyperlipidemia Hypertension (Chronic) Medical History Atrial septal aneurysm Aortic stenosis Mild to moderate valvular aortic stenosis (SUJIT 0.9 cm2, mean PG 17 mmHg) per 01/2024 echo Hyperlipidemia History of anxiety Hx of osteoarthritis Hypertension controlled, stable per pt Kidney stone (~1975) Hx, passed without intervention Surgical History History of reverse total replacement of right shoulder joint Hx of breast reduction, elective Hx of arthroscopic knee surgery Left Hx of appendectomy + hysterectomy Hx of total hysterectomy with removal of both tubes and ovaries History of esophagogastroduodenoscopy (EGD) Hx of colonoscopy Hx of cataract extraction bilateral Social History Smoking Status: Never smoker Second Hand Exposure: No; Do You Dip or Chew Tobacco: No; Tobacco Cessation Education Requested by Patient: No Hx Alcohol Use: Yes Hx Substance Use: No Preferred Language: Citizen Of [place] Communication Ability: Effective 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 Beliefs That Will Affect Care: None Current Living Situation: Spouse Other Information That Helps Us Care for You: No Feels Safe at Home: Yes Safety Concerns: Feels Safe At This Time Assistive Devices: Denture - Upper Review of Systems All systems reviewed & are unremarkable except as noted in HPI & below Physical Exam Constitutional: WD/WN, vitals as above Respiratory: normal respiratory effort; no respiratory distress Cardiovascular: Rate/Rhythm: regular rate and regular rhythm Musculoskeletal: Bilateral varus knees with mild effusions and swelling with medial joint line tenderness and patellofemoral crepitation with stable knees but restricted range of motion and painful range of motion with weightbearing pain. 5 to 100 degrees range of motion bilaterally with [id number] crepitation with gentle varus and valgus stress with some mild pseudolaxity. Skin: no rashes, warm and dry Neurologic: normal touch/pain/proprioception Psychiatric: A+Ox3, euthymic affect Results & Data Diagnostic Findings Bilateral knee x-rays demonstrate she has varus knees with some bone loss medial compartment bilaterally with grade 4 [id number] medial compartment and moderate patellofemoral OA bilateral.
[~2024-07-08 09:21] MED LIST changes: -ACETAMINOPHEN 500 MG TAB PO SCH; -CeleBREX 200 MG CAP PO SCH; -FAMOTIDINE 20 MG TAB PO SCH; -GABAPENTIN 300 MG CAP PO SCH; -LR 15ML/HR IV SCH; -METOCLOPRAMIDE HCL 10 MG TABLET PO SCH; +ROPIVACAINE 0.5% 5 MG/ML 30 ML VIAL ONE; -TRANEXAMIC ACID 1,000 MG **IV Pre-op IV SCH; -ceFAZolin 2000MG 2,000 MG/15 ML SYR IV SCH; -dexAMETHasone 4 MG TAB PO SCH
[2024-07-08] MEDS ORDERED: fentaNYL citrate PF 100 MCG/2 ML VIAL ONE ×2 (09:29→12:50)
[2024-07-08] MEDS: LR 500ML BOLUS, THEN 15ML/HR IV SCH (10:05)
[2024-07-08] MEDS: LR 60ML/HR IV SCH (10:08)
[2024-07-08] MEDS: CeleBREX 200 MG CAP PO SCH (10:23)
[2024-07-08] MEDS: ACETAMINOPHEN 500 MG TAB PO SCH ×2 (10:23→21:25)
[2024-07-08] MEDS: dexAMETHasone**PF** 10 MG/ML VIAL IV SCH (10:24)
[2024-07-08] MEDS: GABAPENTIN 300 MG CAP PO SCH (10:24)
[2024-07-08] MEDS: METOCLOPRAMIDE HCL 10 MG TABLET PO SCH (10:24)
[2024-07-08] MEDS: FAMOTIDINE 20 MG TAB PO SCH (10:24)
[2024-07-08] MEDS ORDERED: ATROPINE SULFATE 0.1 MG/ML 10ML SYR IV PRN (11:03)
[2024-07-08] MEDS ORDERED: ONDANSETRON INJ 2 MG/ML 2 ML VIAL IV PRN ×2 (11:03→15:57)
[2024-07-08] MEDS ORDERED: ePHEDrine sulfate 50 MG/ML AMP IV PRN (11:03)
[2024-07-08] MEDS ORDERED: fentaNYL citrate PF 100 MCG/2 ML VIAL IV PRN (11:03)
--- NOTE | 2024-07-08 11:20 | History & Physical Bridge Note ---
Date of Service July 08, 2024 History & Physical Bridge Note I have examined the patient, reviewed the History & Physical and in the interval since the performance of the History & Physical I have noted the following changes of clinical significance: no changes noted
[2024-07-08] MEDS: TRANEXAMIC ACID 1,000 MG **IV Pre-op IV SCH (11:23)
[2024-07-08] MEDS: ceFAZolin 2000MG 2,000 MG/15 ML SYR IV SCH ×2 (12:00→19:47)
[2024-07-08] MEDS ORDERED: PROPOFOL IV EMULSION 10 MG/ML 20 ML VIAL IV ONE (12:01)
[2024-07-08] MEDS ORDERED: DEXAMETHASONE SOD INJ 4 MG/ML VIAL ONE (12:01)
[2024-07-08] MEDS ORDERED: ONDANSETRON INJ 2 MG/ML 2 ML VIAL ONE (12:01)
[2024-07-08] MEDS ORDERED: PHENYLEPHRINE 100MCG/ML 5ML SYR ONE (12:10)
[2024-07-08] MEDS ORDERED: ePHEDrine sulfate 50 MG/5 ML SYR ONE (12:10)
[2024-07-08] MEDS: ORTHO JOINT ANESTHETIC ONE (12:29)
[2024-07-08] MEDS: ROPIV 0.5% 246mg, Ketorolac 30mg, EPINEPHrine 0.5mg in NSS INFIL SCH (12:29)
[2024-07-08] MEDS: TRANEXAMIC ACID 1,000 MG **IV Intra-op IV SCH (13:15)
--- NOTE | 2024-07-08 14:20 | Operative Report ---
Post Operative Report Pre & Post Diagnosis Operation Date: 07/08/24 11:30 Pre-Op Diagnosis: Right Knee Osteoarthritis Post-Op Diagnosis: Right Knee Osteoarthritis I identified the patient and participated in the time-out.: Yes Procedure Operation Date: 07/08/24 11:30 Actual Procedures p Right Total Knee Arthroplasty(Right), alexander and Acticoat superficial wound VAC application- Maxwell Gardner MD Surgeon Maxwell Gardner MD [employer]ing [employer]er Jimi WOLFE Estimated Blood Loss 5 Findings Consistent with Post-Op Diagnosis Specimens Bone cuts Drains 2 Hemovac Anesthesia Type General Regional Complications none Disposition Disposition: Recovery Room Indications 84-year-old female with severe bilateral knee osteoarthritis but more painful on the right than left. She has chhb-cn-hoca medial compartment bilateral knees with some level of bone loss there medially. She has patellofemoral and medial compartment OA. Description of Procedure The patient was taken to the operating room and anesthetized under general regional block anesthesia. Patient was placed supine on the the operating table. A pneumatic tourniquet was placed about the right upper thigh. The knee exam demonstrated full range of motion some knee hyperextension and some generalized ligamentous laxity with varus valgus stress with [id number] crepitation medial compartment. There was moderate obesity about the upper thigh. The involved leg was elevated exsanguinated with Esmarch bandage and the pneumatic tourniquet was raised to 300 millimeters mercury. A longitudinal incision was made across the anterior knee. Skin flaps were elevated. An incision was made into the medial retinaculum and extended up into the mid third of the quadriceps tendon and extended down to the tibial tubercle. Intra- articular findings demonstrated medial compartment and patellofemoral osteoarthritis with eburnated bone medially with some bone loss.. The knee was exposed by excising cruciate ligaments and menisci. The infrapatellar fat pad was resected. The fat pad over the anterior femur at the upper aspect of the articular surface was resected for placement of the component in that area. A subperiosteal peel lateral release was performed around the patella. The [employer] journey 2.0 posterior stabilized total knee arthroplasty system was utilized for the procedure. The custom femoral cutting guide was pinned in position. The distal femoral cut was made. The size 3, 5 in 1 cutting block was placed. The anterior posterior and chamfer cuts were made. The knee was extended and a free hand cut technique was performed to the patella. The patella width was measured and the width was reproduced using a 32 symmetrical patella component. The excess lateral facet was beveled off to prevent any impingement. 3 drill holes are made for the patella component pegs. The tibia was then subluxed. The custom tibial cutting block was pinned in position and the proximal tibial cut was made with the oscillating saw. Flexion and extension gaps were balanced. No releases were required. The size 2 right tibial trial was externally rotated in line with the tibial tubercle and pinned in position. The punch for the stem was used. The femoral trial was inserted and centered the notch cutting devices were used and the collet was placed. Tibial trials were used for the insert. The size 15 trial gave balanced ligaments through full range of motion. Patella tracking was assessed with range of motion. The patella tracked centrally. The trials were removed. The Orthomix anesthetic cocktail was injected per protocol. The cut bone surfaces and soft tissue were copiously irrigated with pulsatile lavage saline solution. The final components were cemented with Refobacin cement. The final components were []. Xperience irrigation was placed over metal tray prior to polyethyle insertion. After the cement cured, the knee was then copiously irrigated with pulsatile lavage Xperience solution. 2 drains were brought out laterally connected to Hemovac. The quadriceps tendon and medial retinaculum were closed with #2 FiberWire [id number] sutures around the medial retinaculum distal quad tendon and the apex of the quad tendon split proximally. An additional suture was placed at the level of the tibial polyethylene. A 0 running locking STRATAFIX suture was placed from the apex of the split proximally down to the inferior patella and then the medial retinaculum from the inferior patella down to the tibial tubercle was repaired with [id number] #1 Vicryl sutures.. The knee was taken through full range of motion and repair was secure. Knee range of motion was 0 through 140. the subcutaneous tissues were closed with 2-0 Vicryl sutures. The skin was closed with surgical echo. A alexander and Acticoat superficial wound VAC was applied. The tourniquet was let down and the patient had good capillary refill to the extremity. The patient tolerated the procedure well. My physician operations assistant YANETH Phillips participated as assistant therapy aide and was integral part in all aspects of the procedure including prepping, draping, leg positioning, soft tissue retraction, instrument management and assisted in the closure , superficial wound VAC application and will participate in postoperative care the patient. I attest to the content of the Intraoperative Record and any orders documented therein. Any exceptions are noted below.
--- NOTE | 2024-07-08 14:37 | XRay Report ---
XR knee RT 1 or 2V routine CLINICAL HISTORY: Surgical Post Op COMPARISON: None FINDINGS: Right knee prosthesis shows no hardware complication. Postoperative drain is present. Ther e is expected soft tissue gas. Skin echo are present. IMPRESSION: Unremarkable postoperative exam. ACT 112: Negative or not required by law. Electronically signed by: Aryan Newell M.D. 07/08/2024 2:36 PM
--- NOTE | 2024-07-08 14:40 | Anesthesiology Progress Note ---
Date of Service July 08, 2024 Anesthesia Post Procedure Vital Signs Vital Signs: Temp Pulse Resp BP Pulse Ox O2 Del Method O2 Flow Rate 07/08/24 14:35 95 H 15 138/75 97 Nasal Cannula 2 07/08/24 14:25 101 H 16 136/73 95 Room Air 07/08/24 14:15 100 H 15 162/87 H 99 Oxymask 4 07/08/24 14:05 36.5 C 100 H 15 154/71 H 99 Oxymask 9 07/08/24 09:45 36.6 C 84 20 169/90 H 94 Room Air Pain Intensity Right Knee: Pain Intensity: 3 Notes Mental Status: alert / awake / arousable Patient Amnestic to Procedure: Yes Nausea / Vomiting: adequately controlled Pain: adequately controlled Airway Patency, RR, SpO2: stable & adequate BP & HR: stable & adequate Hydration State: stable & adequate Neuraxial Anesthesia: was administered and sensory block is resolving Anesthetic Complications: no major complications apparent
[2024-07-08] MEDS ORDERED: ALUMINUM/MAGNESIUM SUSP 30 ML UDC PO PRN (15:57)
[2024-07-08] MEDS ORDERED: KETOROLAC TROMETHAMINE 15 MG/ML VIAL IV PRN (15:57)
[2024-07-08] MEDS ORDERED: bisacodyL 10 MG SUPP PR PRN (15:57)
[2024-07-08] MEDS ORDERED: METOCLOPRAMIDE HCL INJ 5 MG/ML 2 ML VIAL IV PRN (15:57)
[2024-07-08] MEDS ORDERED: HYDROmorphone INJ 0.5 MG/0.5 ML SYR IV PRN (15:57)
[2024-07-08] MEDS ORDERED: NALOXONE HCL 0.4 MG/1 ML VIAL/CARP IV PRN (15:57)
[2024-07-08] MEDS ORDERED: MAGNESIUM HYDROXIDE SUSP 30 ML UDC PO PRN (15:57)
[2024-07-08] MEDS ORDERED: diphenhydrAMINE Capsule 25 MG CAP PO PRN (15:57)
--- NOTE | 2024-07-08 16:58 | Cardiology Consultation ---
Date of Consultation July 08, 2024 Assessment & Plan (1) Status post total right knee replacement: (2) Moderate aortic stenosis: (3) Hypertension: (4) Atrial septal aneurysm: (5) Hyperlipidemia: Plan Generally healthy woman with moderate aortic stenosis and atrial septal aneurysm status post total right knee replacement earlier today. She is asymptomatic and hemodynamically stable. Continue amlodipine and lisinopril for hypertension, continue aspirin 81 mg daily for atrial septal aneurysm. Since her aortic stenosis is noncritical, her risk of hemodynamic decompensation is low. She is followed routinely by Dr. Patel, will inform him of her presence in the hospital. History of Present Illness Reason for Consultation: Aortic stenosis, postop total knee arthroplasty Requesting Physician: Maxwell Gardner MD Attending Physician: Maxwell Gardner MD History of Present Illness 84-year-old woman with history of atrial septal aneurysm, mild to moderate aortic stenosis 2023 echo, who is seen after right total knee arthroplasty earlier today for postoperative cardiac management. She had no complaints, denying any chest pain, dyspnea, palpitations, or lightheadedness. Allergies Allergy/AdvReac Type Severity Reaction Status Date / Time No Known Allergies Allergy Verified 07/08/24 10:11 Home Medications Medication Instructions Recorded Confirmed Type amlodipine 5 mg tablet 5 mg PO QAM 01/05/20 07/08/24 History atorvastatin 10 mg tablet 10 mg PO HS 01/05/20 07/08/24 History escitalopram oxalate 10 mg tablet 20 mg PO HS 01/05/20 07/08/24 History lisinopril 30 mg tablet 30 mg PO QAM 01/05/20 07/08/24 History cholecalciferol (vitamin D3) 125 125 mcg PO QAM 02/02/22 07/08/24 History mcg (5,000 unit) tablet (Vitamin D3) aspirin 81 mg tablet 81 mg PO QAM 09/14/22 07/08/24 History amoxicillin 500 mg capsule 500 mg PO UD #20 caps 11/29/23 07/08/24 Rx docusate sodium 50 mg tablet 50 mg PO DAILY PRN prn 06/12/24 07/08/24 History acetaminophen 500 mg tablet 1,000 mg (2 x 500 mg) PO Q8H #90 07/08/24 Rx (Tylenol Extra Strength) tabs aspirin 81 mg tablet,delayed 81 mg PO BID #60 tabs 07/08/24 Rx release cefadroxil 500 mg capsule 500 mg PO Q12H #28 caps 07/08/24 Rx celecoxib 200 mg capsule (Celebrex) 200 mg PO Q12H #60 caps 07/08/24 Rx oxycodone 5 mg tablet 5 mg PO Q4H PRN pain #20 tabs 07/08/24 Rx Patient History Medical History Atrial septal aneurysm Aortic stenosis Mild to moderate valvular aortic stenosis (SUJIT 0.9 cm2, mean PG 17 mmHg) per 01/2024 echo Hyperlipidemia History of anxiety Hx of osteoarthritis Hypertension controlled, stable per pt Kidney stone (~1975) Hx, passed without intervention Surgical History History of reverse total replacement of right shoulder joint Hx of breast reduction, elective Hx of arthroscopic knee surgery Left Hx of appendectomy + hysterectomy Hx of total hysterectomy with removal of both tubes and ovaries History of esophagogastroduodenoscopy (EGD) Hx of colonoscopy Hx of cataract extraction bilateral Social History Smoking Status: Never smoker Second Hand Exposure: No; Do You Dip or Chew Tobacco: No; Tobacco Cessation Education Requested by Patient: No Hx Alcohol Use: Yes Hx Substance Use: No Preferred Language: Danish Communication Ability: Effective Retail Helper Required: No Beliefs That Will Affect Care: None Current Living Situation: Spouse Other Information That Helps Us Care for You: No Feels Safe at Home: Yes Safety Concerns: Feels Safe At This Time Assistive Devices: Denture - Upper Physical Exam Physical Exam: Elderly white female appears comfortable. BP 149/88 mmHg. Pulse 82 bpm and regular. Respirations 16 and unlabored. Skin: no ecchymoses or generalized lesions. HEENT: unremarkable. Neck: JVP at the clavicle at 90 degrees, transmitted murmur to carotids. Lungs: clear. Cardiac: regular rhythm, aortic closure sound markedly reduced but audible, 3/6 crescendo/decrescendo systolic ejection murmur right upper sternal border rating to the carotids, no diastolic murmur. Abdomen: benign. Extremities: no edema, pulses intact. Neurologic: normal affect and conversation, nonfocal. Results & Data Laboratory Results Normal CBC, normal electrolytes, BUN 20, creatinine 0.97. Diagnostic Findings Preop chest x-ray unremarkable. ECG showed sinus rhythm at 62 bpm and was unremarkable. Echocardiogram January 2024 showed EF 5560% with mild to moderate aortic stenosis and mild left ventricular prophy. PG Care Time/CCT Total # of Minutes Spent Total Time Spent with Patient: Total time spent is greater than 50% in coordination of care (as documented) at patient's floor/unit and/or counseling patient: Coding Level of Care Code 21486 INT INP/OBS CARE 40MIN Diagnoses Status post total right knee replacement Z96.651 Moderate aortic stenosis I35.0 Hypertension, unspecified type I10 Hypertension type: unspecified Atrial septal aneurysm I25.3 Hyperlipidemia, unspecified hyperlipidemia type E78.5 Hyperlipidemia type: unspecified (3) Hypertension Hypertension type: unspecified Qualified Code(s): I10 - Essential (primary) hypertension (5) Hyperlipidemia Hyperlipidemia type: unspecified Qualified Code(s): E78.5 - Hyperlipidemia, unspecified
[2024-07-08] MEDS: oxyCODONE HCL IR 5 MG TAB (IMMEDIATE RELEASE) PO PRN (17:19)
[2024-07-08] MEDS: TRANEXAMIC ACID / 0.7% NACL 1,000 MG/100 ML BAG IV SCH (19:47)
[2024-07-08] MEDS: ATORVASTATIN 10 MG TAB PO SCH (20:06)
[2024-07-08] MEDS: ESCITALOPRAM OXALATE 20 MG TAB PO SCH (20:06)
[2024-07-08] MEDS: SENNA 8.6 MG TAB PO SCH (20:06)
[2024-07-08] MEDS: ASPIRIN 81 MG ECTAB PO SCH (20:06)
[2024-07-08] MEDS: DOCUSATE SODIUM 100 MG CAP PO SCH (20:06)
[2024-07-09 07:29] VITALS: RESP 16; TEMP 98.1; O2SAT 95
[2024-07-09 07:35] LABS: Hematocrit (blood only) 30.7 % (37.0-47.0); Hemoglobin 10.4 g/dl (12.0-16.0); Mean Corpuscular Hemoglobin 29.1 pg (25.0-34.0); Mean Corpuscular Hgb Conc 33.9 g/dL (32.0-36.0); Mean Platelet Volume 9.6 fL (9.4-12.4); Platelet Count 219 K/uL (130-400); RDW Coefficient of Variation 12.3 % (11.5-14.5); RDW Standard Deviation 38.9 fL (36.4-46.3); Red Blood Count 3.57 M/uL (4.20-5.40); White Blood Count 11.45 K/ul (4.8-10.8)
[2024-07-09 07:51] LABS: Calcium 9.1 mg/dl (8.6-10.3); Potassium 4.7 mmol/L (3.5-5.1)
[2024-07-09] MEDS: amLODIPine BESYLATE 5 MG TAB PO SCH (08:25)
[2024-07-09] MEDS: lisinopril 10 MG TAB PO SCH (08:25)
[2024-07-09] MEDS: CHOLECALCIFEROL 125 MCG (5,000 UNITS) TAB PO SCH (08:25)
[2024-07-09] MEDS: MULTIVITAMIN TAB PO SCH (08:25)
[2024-07-09] MEDS: dexAMETHasone 10 MG in SYRINGE 0 ML IV SCH (08:26)
--- NOTE | 2024-07-09 09:38 | Orthopedic Progress Note ---
Date of Service July 09, 2024 Assessment & Plan (1) Bilateral primary osteoarthritis of knee: Plan: Doing well postop day #1 status post right total knee arthroplasty. PT/OT DVT prophylaxisaspirin 81 mg twice daily, RADHA stockings Pain control as written. The Hemovac drain will be removed today prior to discharge. Discharge planningplan for home with outpatient physical therapy. The physical therapy prescription is in her chart. Admission and Anticipated Discharge Date Admission Date: July 08, 2024 Subjective Patient states the right knee is doing well today. Pain is controlled. No complaints today. She is eating breakfast in anticipation for physical therapy. Physical Exam Constitutional: WD/WN, vitals as above no acute distress Musculoskeletal: Knee: + surgical incision (Right knee dressing is C/D/I) and + surgical drain present (Hemovac drainage approximately 90 cc.); knee normal to inspection, no deformity, no skin erythema and no ecchymosis Skin: no rashes, warm and dry Trauma: no evidence of skin trauma Neurologic: normal touch/pain/proprioception (Right ankle dorsiflexion intact.) Psychiatric: A+Ox3, euthymic affect Speech: normal rate/rhythm/volume of speech Results & Data Vital Signs (Past 12 Hours) Vital Signs Temp Pulse Resp BP Pulse Ox O2 Del Method 07/09/24 07:28 36.7 C 69 16 138/72 95 Room Air 07/09/24 03:28 36.6 C 69 18 116/69 94 Room Air 07/08/24 23:09 36.3 C L 75 18 112/68 93 Room Air
[2024-07-09 11:01] VITALS: BP 131/79; PULSE 87
== END 2024-07-09 12:28 | disposition home health service (06) ==
LOC: ASU 09:21 → 3E 09:21